=== PATIENT | female | born 1960 | race Caucasian/White ===

== ENCOUNTER → 2017-02-06 | Outpatient (CLI) | payer OTHER ==
[~2017-02-06] MED LIST: ALPR0.5T99 PO; BIOT10004 PO; CALC625 PO; CYCL1PAK PO; DOCU250C PO; DYAZ37.57 PO; ESTR0.053 TD; FENO50TA PO; FISH100020 OR; LEVO.05 PO; OS-CTAB3 PO; RED600TA OR; VIVE0.1D TD; [UNRECOGNIZED DRUG - CODE] OR; [UNRECOGNIZED DRUG - CODE] PO
[2017-02-06 14:01] LABS: ALT (GPT) 49 U/L (10-53); AST (GOT) 29 U/L (15-37); BLOOD UREA NITROGEN 14 MG/DL (7-18); CHLORIDE 104 MEQ/L (98-107); GLOMERULAR FILTRATION RATE 77 ML/MIN (>89); GLUCOSE,FASTING 97 MG/DL (74-99); POTASSIUM 3.8 MEQ/L (3.5-5.1); SODIUM (NA) 140 MEQ/L (136-145)
[2017-02-06 14:02] LABS: ANION GAP 10 MEQ/L (5-15)
[2017-02-06 14:13] LABS: ALKALINE PHOSPHATASE 56 U/L (45-117); HDL CHOLESTEROL 55.1 MG/DL (40.0-60.0); LDL CHOLESTEROL 73 MG/DL (0-99); TOTAL BILIRUBIN ADULT 0.4 MG/DL (0.2-1.0)
== END ==
LOC: PLAB 09:50
PROVIDERS: ATTEND Family Medicine
DX: E78.2 Mixed hyperlipidemia (principal); E03.8 Other specified hypothyroidism; Z68.32 Body mass index [BMI] 32.0-32.9, adult
CPT/HCPCS: 80053; 80061; 84443

== ENCOUNTER → 2017-08-22 | Outpatient (CLI) | payer OTHER ==
[2017-08-22 14:39] LABS: HDL CHOLESTEROL 44.5 MG/DL (40.0-60.0)
== END ==
LOC: PLAB 09:28
PROVIDERS: ATTEND Family Medicine
DX: E78.2 Mixed hyperlipidemia (principal)
CPT/HCPCS: 80061

== ENCOUNTER → 2018-01-23 | Outpatient (CLI) | payer OTHER ==
[~2018-01-23] MED LIST changes: -ALPR0.5T99 PO; -BIOT10004 PO; -FISH100020 OR; +FLUT1SPR5 EACH NARE; -LEVO.05 PO; +LEVO.075 PO; +LEXA20TA PO; +MEDR4PAK PO; -RED600TA OR; -[UNRECOGNIZED DRUG - CODE] PO
[2018-01-23 14:11] LABS: ALBUMIN 3.5 GM/DL (3.4-5.0); AST (GOT) 34 U/L (15-37); BICARBONATE 24.9 MEQ/L (21.0-32.0); BLOOD UREA NITROGEN 16 MG/DL (7-18); CALCIUM 8.3 MG/DL (8.5-10.1); CHLORIDE 103 MEQ/L (98-107); CREATININE 0.66 MG/DL (0.50-1.00); GLOMERULAR FILTRATION RATE 92 ML/MIN (>89); GLUCOSE,FASTING 113 MG/DL (74-99); SODIUM (NA) 139 MEQ/L (136-145)
[2018-01-23 14:13] LABS: ALT (GPT) 52 U/L (10-53); CHOLESTEROL 209 MG/DL (120-200); TRIGLYCERIDES 247 MG/DL (42-150)
[2018-01-23 14:22] LABS: ALKALINE PHOSPHATASE 53 U/L (45-117); CHOLESTEROL/ HDL RATIO 4.59 RATIO; HDL CHOLESTEROL 45.5 MG/DL (40.0-60.0); LDL CHOLESTEROL 114 MG/DL (0-99); TOTAL BILIRUBIN ADULT 0.4 MG/DL (0.2-1.0); TOTAL PROTEIN 6.7 GM/DL (6.4-8.2)
== END ==
LOC: PLAB 11:00
PROVIDERS: ATTEND Family Medicine
DX: E78.2 Mixed hyperlipidemia (principal); E03.9 Hypothyroidism, unspecified
CPT/HCPCS: 36415; 80053; 80061; 84443